=== PATIENT | female | born 1995 | race Two or more races ===

== ENCOUNTER 2022-10-16 09:43 | Emergency (ER) | payer OTHER, SELFPAY ==
--- NOTE | 2022-10-16 11:37 | ED_ITS ---
HPI - Abdominal Pain General Chief Complaint: Abdominal Pain <Yoly Gómez MD - Last Filed: 10/16/22 11:40> Stated Complaint: Stomach Pain <Yoly Gómez MD - Last Filed: 10/16/22 11:40> Time Seen by Provider: 10/16/22 12:48 <Yoly Gómez MD - Last Filed: 10/16/22 11:40> Source: patient <FIONA Ferrera - Last Filed: 10/16/22 15:55> Mode of arrival: ambulatory <FIONA Ferrera - Last Filed: 10/16/22 15:55> Limitations: no limitations <FIONA Ferrera - Last Filed: 10/16/22 15:55> History of Present Illness HPI narrative: 27 yo female presenting with abdominal cramping that started yesterday, along with body aches, headache and some nausea. She is here with her 3.5 year old daughter who has cough and ear pain. She states the abdominal pain is intermittent and cramping in nature. She is just finishing her menses. She denies any nausea, diarrhea or vomiting. Her last BM was yesterday morning and she usually goes each morning. She also endorses some body aches and headache, throbbing in nature. <FIONA Ferrera - Last Filed: 10/16/22 15:55> MD elicited complaint: abdominal pain <FIONA Ferrera - Last Filed: 10/16/22 15:55> Pertinent past history: none <FIONA Ferrera - Last Filed: 10/16/22 15:55> Onset (ago): day(s) (1) <FIONA Ferrera - Last Filed: 10/16/22 15:55> Pain Consistency: intermittent <FIONA Ferrera Last Filed: 10/16/22 15:55> Location: diffuse <FIONA Ferrera Last Filed: 10/16/22 15:55> Severity: moderate <FIONA Ferrera Last Filed: 10/16/22 15:55> Quality: cramping <FIONA Ferrera - Last Filed: 10/16/22 15:55> Radiation: none <FIONA Ferrera - Last Filed: 10/16/22 15:55> Migration to: no migration <FIONA Ferrera Last Filed: 10/16/22 15:55> Exacerbating factors: nothing <FIONA Ferrera - Last Filed: 10/16/22 15:55> Relieving factors: nothing <FIONA Ferrera - Last Filed: 10/16/22 15:55> Associated symptoms: denies other symptoms <FIONA Ferrera - Last Filed: 10/16/22 15:55> Related Data Allergies/Adverse Reactions: Allergies Allergy/AdvReac Type Severity Reaction Status Date / Time No Known Allergies Allergy Verified 10/16/22 13:34 <Yoly Gómez MD - Last Filed: 10/16/22 11:40> Review of Systems Review of Systems Constitutional: No Fever, No Chills ENT/Mouth: No sore throat, No Rhinorrhea, No Swallowing Difficulty Cardiovascular: No Chest Pain, No SOB Respiratory: No Cough, No Sputum Gastrointestinal: + Nausea, No Vomiting, No Diarrhea, +abdominal Pain, No Hematochezia, No Melena Genitourinary: No Dysuria, No Urinary Frequency, No Hematuria Musculoskeletal: + joint pain, + Myalgias Skin: No Skin Lesions, No rash Neuro: No Weakness, No Numbness, No Dizziness, + Headache Psych: No Anxiety/Panic, No Depression Heme/Lymph: No Bruising, No Lymphadenopathy <FIONA Ferrera - Last Filed: 10/16/22 15:55> [facility] Social History Social History: Social History Advance Directives: No Advance Directives Information Provided: No <Yoly Gómez MD - Last Filed: 10/16/22 11:40> Physical Exam ED Vital Signs: Vital Signs - 24 hr 10/16/22 11:38 Temperature 97.3 F Pulse Rate 92 Respiratory Rate 18 Blood Pressure 99/64 Pulse Oximetry 98 Oxygen Delivery Method Room Air BMI result Body Mass Index 18.0 <Yoly Gómez MD - Last Filed: 10/16/22 11:40> Vital Signs - 24 hr 10/16/22 11:38 Temperature 97.3 F Pulse Rate 92 Respiratory Rate 18 Blood Pressure 99/64 Pulse Oximetry 98 Oxygen Delivery Method Room Air BMI result Body Mass Index 18.0 <FIONA Ferrera - Last Filed: 10/16/22 15:55> Appearance: Alert. Oriented X3. No acute distress. Eyes: Pupils equal, round and reactive to light. ENT: Pharynx normal. Neck: Normal inspection. Neck supple. CVS: Normal heart rate and rhythm. Pulses normal. Respiratory: No respiratory distress. Breath sounds normal. Abdomen: Soft and nontender. +BS x4 Skin: Skin warm and dry. Normal skin color. Normal skin turgor. No rashes. Extremities: No lower extremity edema. Neuro: Oriented X 3. Nonfocal. <FIONA Ferrera - Last Filed: 10/16/22 15:55> Course Course Course Narrative: Patient is a 27-year-old female presents today with having diffuse abdominal pain nausea generalized malaise diffuse body aches. Patient denies any coughing congestion upper respiratory symptoms. Patient's family member also has upper respiratory symptoms been running fevers. Patient from home. Vaccinated for COVID x2. Only surgery done in the past is a . Patient's labs ordered. COVID RSV flu ordered. sHe is placed back in the waiting room <Yoly Gómez MD - Last Filed: 10/16/22 11:40> Reevaluation(s) Reevaluation #1: 27 yo female presenting with nausea, body aches, nasal congestion and stomache ache for the last day or so. No BM since yesterday AM and she usually has one each morning. Abd is soft. She is here with her 3 yo daughter who was found to be positive for Influenza. Patients labs are unremarkable. Viral PCR negative. Counseled that is could be a false negative. Given oral maalox and simethicone with improvement in her symptoms. Will hold off on imaging her abdomen today. She is stable for d/c home with supportive care. Return precautions were discussed. <FIONA Ferrera - Last Filed: 10/16/22 15:55> Medications Administered Discontinued Medications Generic Name Dose Route Start Last Admin Trade Name Freq PRN Reason Stop Dose Admin Al Hydroxide/Mg Hydroxide 30 ml 10/16/22 13:20 10/16/22 13:29 Magnesium Hydrox/Alum Hydrox 30 Ml Oral.Susp PO 10/16/22 13:21 30 ml ONCE ONE Administration Simethicone 160 mg 10/16/22 13:20 10/16/22 13:28 Simethicone 80 Mg Tab.Chew PO 10/16/22 13:21 160 mg ONCE ONE Administration <Yoly Gómez MD - Last Filed: 10/16/22 11:40> Medications Administered Discontinued Medications Generic Name Dose Route Start Last Admin Trade Name John PRN Reason Stop Dose Admin Al Hydroxide/Mg Hydroxide 30 ml 10/16/22 13:20 10/16/22 13:29 Magnesium Hydrox/Alum Hydrox 30 Ml Oral.Susp PO 10/16/22 13:21 30 ml ONCE ONE Administration Simethicone 160 mg 10/16/22 13:20 10/16/22 13:28 Simethicone 80 Mg Tab.Chew PO 10/16/22 13:21 160 mg ONCE ONE Administration <FIONA Ferrera - Last Filed: 10/16/22 15:55> Discharge Plan Discharge Clinical Impression: Acute viral syndrome <Yoly Gómez MD - Last Filed: 10/16/22 11:40> Patient Disposition: Home, Self-Care <Yoly Gómez MD - Last Filed: 10/16/22 11:40> Instructions: Viral Syndrome (ED) <Yoly Gómez MD - Last Filed: 10/16/22 11:40> Additional Instructions: Your lab workup today was unremarkable. You tested negative for influenza, COVID and RSV. This may be a false negative, because her daughter did test positive for influenza A. You are more likely to contract this virus. Recommend sticking to a bland diet wire not feeling well. Take [id number]-cjednyc Pepto-Bismol for upset stomach. You can try pary-uos-[id number] MiraLax or senna for constipation. Your cramping is most likely due to constipation. Follow-up with your doctor. If you develop new or worsening symptoms call 911 or come back to the ER for further evaluation. <Yoly Gómez MD - Last Filed: 10/16/22 11:40> Stand Alone Forms: Work/School Release <Yoly Gómez MD - Last Filed: 10/16/22 11:40> Interventions: ED Discharge Assessment Last Done: 10/16/22 13:59 <Yoly Gómez MD - Last Filed: 10/16/22 11:40> Discharge Date/Time: 10/16/22 14:00 <Yloy Gómez MD - Last Filed: 10/16/22 11:40>
[2022-10-16 11:38] VITALS: BP 99/64; PULSE 92; RESP 18; TEMP 36.3; O2SAT 98; BMI 18.0
[2022-10-16 12:14] LABS: MANUAL DIFF FLAG NO
[2022-10-16 12:18] LABS: Basophils Percent Auto 0.4 % (0-2); Eosinophils Percent Auto 0.4 % (0-4); Hemoglobin 14.1 g/dl (12.0-16.0); Imm Gran Abs Auto 0.01 X10*3/uL (0.00-0.03); Imm Gran Pct Auto 0.2 % (0.0-0.4); Lymphocytes Absolute Auto 1.4 X10*3/uL (1.2-4.9); Mean Corpuscular HGB Conc 32.8 g/dl (31.0-35.0); Mean Corpuscular Volume 91.5 fL (80.0-98.0); Mean Platelet Volume 9.7 fL (9.4-12.3); Monocytes Absolute Auto 0.7 X10*3/uL (0.1-1.2); Monocytes Percent Auto 12.5 % (2-11); Neutrophils Absolute Auto 3.1 x10*3/uL (2.0-8.3); Neutrophils Percent Auto 60.5 % (45-73); Platelet Count 289 X10*3/uL (160-400); Red Cell Distribution Width 12.1 % (11.0-16.0); White Blood Count 5.2 X10*3/uL (4.8-10.8)
[2022-10-16 12:22] LABS: Appearance Urine Clear; Color Urine Dark Yellow; Glucose Urine UA Negative (Negative); Leukocyte Esterase Urine Negative (Negative); Nitrite Urine Negative (Negative); PH 5.5 (5.0-9.0); Specific Gravity - Urine >= 1.030 (1.005-1.025); UMIC TRIGGER UACC YES; Urine Blood Moderate (2+) (Negative); Urine Ketones Trace mg/dL (Negative); Urine Protein Trace mg/dL (Neg-Trace)
[2022-10-16 12:25] LABS: Bacteria Urine 2+ (None Seen); RBC Urine >20 /HPF (0-2); Squamous Epithelial Cell Urine >20 /HPF (0-2); UACC Culture Trigger YES
[2022-10-16 12:26] LABS: UPreg QC Valid YES; Urine Pregnancy NEGATIVE (NEGATIVE)
[2022-10-16 12:36] LABS: Alanine Aminotransferase 20 U/L (0-31); Albumin Level 4.2 g/dL (3.5-5.0); Alkaline Phosphatase 70 U/L (39-117); Anion Gap 10 (12-20); Aspartate Amino Transferase 18 U/L (5-31); Bilirubin Direct 0.2 mg/dL (0.0-0.5); Bilirubin Total 0.5 mg/dL (0.0-1.0); Blood Urea Nitrogen 8 mg/dL (9-16); Calcium 9.2 mg/dL (8.4-10.2); Carbon Dioxide 25 mmol/L (22-29); Chloride 106 mmol/L (96-108); Creatinine Clr Calc Pharmacy 80.8; Estimated Glomerular Filt Rate > 60; Glucose Random 87 mg/dL (60-115); Lipase 16 U/L (8-78); Potassium 3.6 mmol/L (3.3-5.1); Sodium 137 mmol/L (135-145); Total Protein 6.8 g/dL (6.5-8.0)
[2022-10-16 13:27] LABS: Influenza A PCR NEGATIVE (Negative); Influenza B PCR NEGATIVE (Negative); Resp Syncy Virus RNA Qual PCR NEGATIVE (Negative); SARS COV2 PCR INHOUSE NEGATIVE (Negative)
[2022-10-16] MEDS: Simethicone 80 MG TAB.CHEW 160 MG PO (13:28)
[2022-10-16] MEDS: Magnesium Hydrox/Alum Hydrox 30 ML ORAL.SUSP PO (13:29)
== END 2022-10-16 14:00 | disposition home or self-care (01) ==
PROVIDERS: Emergency Medicine Emergency Medical Services; Physician Assistant Medical; Emergency Provider Emergency Medicine Emergency Medical Services
DX: B34.9 Viral infection, unspecified (principal); R10.9 Unspecified abdominal pain; M79.10 Myalgia, unspecified site; Z20.822 Contact with and (suspected) exposure to COVID-19; Z79.899 Other long term (current) drug therapy
CPT/HCPCS: 0241U; 36415; 80048; 80076; 81001; 81025; 83690; 85025; 87086; 99283